=== PATIENT | female | born 1975 | race Caucasian/White ===

== ENCOUNTER 2019-05-24 11:25 | Emergency (ER) | payer MEDICAID, OTHER ==
[~2019-05-24] VITALS: Ht 152.4 cm; Wt 60.0 kg
[2019-05-24] MEDS ORDERED: IBUPROFEN 600MG TABLET PO ONE (13:00)
[2019-05-24 13:32] VITALS: BP 172/92
== END 2019-05-24 13:37 | disposition home or self-care (01) ==
LOC: ER 11:25
DX: M54.6 Pain in thoracic spine (principal); M54.2 Cervicalgia; I10 Essential (primary) hypertension; V49.88XA Car occupant (driver) (passenger) injured in other specified transport accidents, initial encounter; Y93.89 Activity, other specified; Y92.89 Other specified places as the place of occurrence of the external cause; Y99.8 Other external cause status
CPT/HCPCS: 81025; 99282